=== PATIENT | male | born 1950 | race Caucasian/White ===

== ENCOUNTER 2017-03-09 09:04 | Emergency (ER) | payer OTHER ==
[~2017-03-09] VITALS: Ht 182.9 cm; Wt 81.4 kg
[~2017-03-09 09:04] MED LIST: ANALGESIC325 M1 PO; ASPIRIN325 MG PO; CARDIZEM SR60 MG PO; CARDIZEM60 MG PO; CLOPIDOGREL75 MG PO; COUMADIN,JANTOVE5 MG PO; DILTIAZEM ER60 MG PO; DOCUSATE SODIU1 EACH PO; ECOTRIN325 MG PO; LIPITOR20 MG PO; LOPRESSOR25 MG PO; METOPROLOL TART50 MG PO; ONDANSETRON HCL4 MG PO; PEPCID20 MG PO; POTASSIUM CHLO20 ME2 PO; POTASSIUM-9999 MG PO; POTASSIUM99 MG PO; PRAVASTATIN SOD80 MG PO; PROMETHAZINE12.5 M1 PO; SERTRALINE HCL100 MG PO; SERTRALINE HCL50 MG PO; SIMVASTATIN40 M1 PO; TAMSULOSIN HCL0.4 MG PO; THERA-TABS1 EACH PO; TOPROL XL50 MG PO; TRAMADOL HCL50 MG PO; TYLENOL REGULA325 MG PO; XARELTO20 MG PO; ZESTORETIC 10-1 EACH PO; ZESTORETIC,P1 TABLE1 PO; ZOLPIDEM TARTRAT5 MG PO
[2017-03-09 09:50] LABS: EOSINOPHIL (%) 0.5 % (0-5); HEMATOCRIT 44.7 % (38.0-50.0); IMMATURE GRANULOCYTE (%) 0.2 % (0.0-0.7); INSTRUMENT ABS NEUTROPHIL CT 4.2 K/uL; LYMPHOCYTE COUNT 0.8 K/uL (1.0-2.8); MCH 29.8 PG (29.0-34.0); MCHC 33.8 G/DL (30.0-36.0); MCV 88.3 FL (86-99); MEAN PLAT.VOLUME 10.7 uM^3 (9.0-12.4); MONOCYTE (%) 8.1 % (3-12); MONOCYTE COUNT 0.4 K/uL (0-0.8); NEUTROPHIL (%) 76.5 % (45-76); NEUTROPHIL COUNT 4.2 K/uL (1.8-6.4); PLATELET COUNT 129 K/uL (156-360); RBC DIS.WIDTH-CV 12.4 % (11.8-14.6); RBC DIS.WIDTH-SD 39.7 % (39-53); RED BLOOD COUNT 5.06 M/uL (4.00-5.50); WHITE BLOOD COUNT 5.5 K/uL (4.1-10.2)
[2017-03-09 09:58] LABS: CHLORIDE 106 mEq/L (99-109); MAGNESIUM 1.7 mg/dL (1.3-2.7); POTASSIUM 3.7 mEq/L (3.7-5.4); SODIUM 142 mEq/L (136-147)
[2017-03-09 10:00] LABS: GLUCOSE 101 mg/dL (70-99)
[2017-03-09 10:01] LABS: ANION GAP 9 MEQ/L (2-14)
[2017-03-09 10:02] LABS: TOTAL BILIRUBIN 2.3 mg/dL (0.0-1.0)
[2017-03-09 10:03] LABS: ALKALINE PHOSPHATASE 89 IU/L (3-129)
[2017-03-09 10:04] LABS: GFR ESTIMATE (CALCULATED) > 59 mL/min/
[2017-03-09 10:05] LABS: UREA NITROGEN (BUN) 10 mg/dL (9-23)
[2017-03-09 10:09] LABS: TROP-I INTERPRETATION NEGATIVE; TROPONIN-I < 0.01 ng/mL (0.0-0.30)
[2017-03-09 12:26] VITALS: BP 148/98
== END 2017-03-09 12:27 | disposition home or self-care (01) ==
LOC: EME 09:04
PROVIDERS: Emergency Medicine
DX: I48.2 Chronic atrial fibrillation (principal); I10 Essential (primary) hypertension; F32.9 Major depressive disorder, single episode, unspecified; Z86.73 Personal history of transient ischemic attack (TIA), and cerebral infarction without residual deficits; Z85.9 Personal history of malignant neoplasm, unspecified
CPT/HCPCS: 80053; 83735; 84484; 85025; 93005; 99281; 99285; J7040

== ENCOUNTER 2017-11-16 15:50 | Observation (INO) | payer OTHER ==
[~2017-11-16] VITALS: Ht 182.9 cm; Wt 76.1 kg
[~2017-11-16 15:50] MED LIST changes: +ADULT ASPIRIN R81 MG PO; +CARDIZEM30 MG PO; -ECOTRIN325 MG PO; +LIPITOR40 MG PO; +METOPROLOL TART25 MG PO
[2017-11-16 16:41] LABS: HEMATOCRIT 43.4 % (38.0-50.0); MCH 30.8 PG (29.0-34.0); MCHC 34.6 G/DL (30.0-36.0); MCV 89.1 FL (86-99); PLATELET COUNT 128 K/uL (156-360); RBC DIS.WIDTH-CV 12.2 % (11.8-14.6); RBC DIS.WIDTH-SD 39.5 % (39-53); RED BLOOD COUNT 4.87 M/uL (4.00-5.50); WHITE BLOOD COUNT 7.9 K/uL (4.1-10.2)
[2017-11-16 16:49] LABS: INTER. NORMALIZED RATIO 1.8
[2017-11-16 16:52] LABS: PTT 33.3 SEC (25-37)
[2017-11-16 16:55] LABS: CHLORIDE 107 mEq/L (99-109); POTASSIUM 3.9 mEq/L (3.7-5.4); SODIUM 144 mEq/L (136-147)
[2017-11-16 16:57] LABS: GLUCOSE 152 mg/dL (70-99); TOTAL PROTEIN 6.8 g/dL (6.4-8.3)
[2017-11-16 16:59] LABS: TOTAL BILIRUBIN 1.9 mg/dL (0.0-1.0)
[2017-11-16 17:00] LABS: ALKALINE PHOSPHATASE 102 IU/L (3-129)
[2017-11-16 17:01] LABS: CREATININE 1.6 mg/dL (0.6-1.3); GFR ESTIMATE (CALCULATED) 46 mL/min/ (58.99-99999)
[2017-11-16 17:02] LABS: AST (GOT) 29 IU/L (2-34); UREA NITROGEN (BUN) 25 mg/dL (9-23)
[2017-11-16 17:03] LABS: ALT (GPT) 22 IU/L (3-49)
[2017-11-16 17:04] LABS: TROP-I INTERPRETATION NEGATIVE; TROPONIN-I < 0.01 ng/mL (0.0-0.30)
[2017-11-16] MEDS ORDERED: XARELTO20 MG PO (18:41)
[2017-11-16 19:58] LABS: URIC ACID 6.5 mg/dL (3.1-9.2)
[2017-11-16 19:59] LABS: CREATINE KINASE 156 IU/L (1-294)
[2017-11-16 20:30] VITALS: BP 127/87
[2017-11-16 22:04] LABS: APPEARANCE CLEAR ((CLEAR)); BILIRUBIN NEGATIVE; BLOOD SMALL; COLOR YELLOW ((YELLOW)); GLUCOSE (STRIP) NEGATIVE; KETONES NEGATIVE; LEUKOCYTES NEGATIVE; NITRITE NEGATIVE; PROTEIN (STRIP) NEGATIVE; SPECIFIC GRAVITY 1.019 (1.000-1.030); UROBILINOGEN 0.2 MG/DL (0.2-1.0)
[2017-11-16 22:07] LABS: BACTERIA NONE SEEN /HPF; EPITHELIAL CELLS NONE SEEN /HPF; HYALINE CASTS 0-5 /LPF; MUCUS 1+ /LPF; RED BLOOD CELLS 0-5 /HPF (0-5); WHITE BLOOD CELLS 0-5 /HPF (0-5)
[2017-11-17] VITALS: BP 121/83
[2017-11-17 04:15] VITALS: BP 137/84
[2017-11-17 05:29] LABS: BASOPHIL (%) 0.4 % (0-1); EOSINOPHIL (%) 2.2 % (0-5); EOSINOPHIL COUNT 0.2 K/uL (0-0.3); HEMOGLOBIN 14.2 G/DL (12.5-16.6); IMMATURE GRANULOCYTE (%) 0.1 % (0.0-0.7); LYMPHOCYTE (%) 21.6 % (15-42); LYMPHOCYTE COUNT 1.5 K/uL (1.0-2.8); MCH 30.1 PG (29.0-34.0); MCHC 33.8 G/DL (30.0-36.0); MONOCYTE (%) 9.8 % (3-12); MONOCYTE COUNT 0.7 K/uL (0-0.8); NEUTROPHIL (%) 65.9 % (45-76); NEUTROPHIL COUNT 4.5 K/uL (1.8-6.4); PLATELET COUNT 118 K/uL (156-360); RBC DIS.WIDTH-CV 12.3 % (11.8-14.6); RBC DIS.WIDTH-SD 40.4 % (39-53); RED BLOOD COUNT 4.72 M/uL (4.00-5.50); WHITE BLOOD COUNT 6.8 K/uL (4.1-10.2)
[2017-11-17 05:46] LABS: TROP-I INTERPRETATION NEGATIVE; TROPONIN-I 0.01 ng/mL (0.0-0.30)
[2017-11-17 05:48] LABS: CHLORIDE 108 MEQ/L (99-109); POTASSIUM 3.8 MEQ/L (3.7-5.4); SODIUM 142 MEQ/L (136-147); UREA NITROGEN (BUN) 18 mg/dL (9-23)
[2017-11-17 05:54] LABS: GFR ESTIMATE (CALCULATED) > 59 mL/min/ (58.99-99999); GLUCOSE 96 mg/dL (70-99)
[2017-11-17 07:34] VITALS: BP 132/81
[2017-11-17 08:36] LABS: ALBUMIN 3.3 G/DL (3.2-4.8); ALKALINE PHOSPHATASE 77 IU/L (3-129); ALT (GPT) 15 IU/L (3-49); AST (GOT) 23 IU/L (2-34); DIRECT BILIRUBIN 0.3 mg/dL (0.0-0.3); TOTAL BILIRUBIN 1.8 MG/DL (0.0-1.0); TOTAL PROTEIN 5.7 G/DL (6.4-8.3)
[2017-11-17 11:12] VITALS: BP 142/75
== END 2017-11-17 13:12 | disposition home or self-care (01) ==
LOC: EME 15:50 → EDOF 19:14 → 4SOUTH 19:14 → ENRESERV 19:31 → 4SOUTH 20:23
PROVIDERS: Hospitalist; Physician Assistant
DX: N17.9 Acute kidney failure, unspecified (principal); E86.0 Dehydration; R55 Syncope and collapse; I48.0 Paroxysmal atrial fibrillation; I11.9 Hypertensive heart disease without heart failure; Z86.73 Personal history of transient ischemic attack (TIA), and cerebral infarction without residual deficits; I45.2 Bifascicular block; E78.5 Hyperlipidemia, unspecified; Z79.01 Long term (current) use of anticoagulants; Z98.890 Other specified postprocedural states; Z82.49 Family history of ischemic heart disease and other diseases of the circulatory system; Z82.3 Family history of stroke; Z80.51 Family history of malignant neoplasm of kidney; E80.6 Other disorders of bilirubin metabolism; D69.6 Thrombocytopenia, unspecified
CPT/HCPCS: 80048; 80053; 80076; 81003; 82436; 82550; 82550 91; 84133; 84300; 84484; 84550; 85025; 85027; 85610; 85730; 93005; 99281; 99284; G0378; J7030

== ENCOUNTER 2017-11-28 08:25 | Day surgery (SDC) | payer OTHER ==
[2017-11-28 18:05] VITALS: BP 136/89
[2017-11-28 19:12] VITALS: BP 130/75
[2017-11-28 19:35] VITALS: BP 80/58
[2017-11-28 20:00] LABS: BASOPHIL (%) 0.1 % (0-1); EOSINOPHIL (%) 0.4 % (0-5); HEMATOCRIT 40.6 % (38.0-50.0); HEMOGLOBIN 14.1 G/DL (12.5-16.6); IMMATURE GRANULOCYTE (%) 0.3 % (0.0-0.7); LYMPHOCYTE (%) 17.8 % (15-42); LYMPHOCYTE COUNT 1.2 K/uL (1.0-2.8); MCH 30.8 PG (29.0-34.0); MCHC 34.7 G/DL (30.0-36.0); MCV 88.6 FL (86-99); MONOCYTE (%) 6.2 % (3-12); MONOCYTE COUNT 0.4 K/uL (0-0.8); NEUTROPHIL (%) 75.2 % (45-76); NEUTROPHIL COUNT 5.2 K/uL (1.8-6.4); PLATELET COUNT 116 K/uL (156-360); RBC DIS.WIDTH-CV 12.3 % (11.8-14.6); RBC DIS.WIDTH-SD 39.4 % (39-53); RED BLOOD COUNT 4.58 M/uL (4.00-5.50)
[2017-11-28 23:31] VITALS: BP 121/72
[2017-11-29 04:55] VITALS: BP 118/65
[2017-11-29 05:48] LABS: BASOPHIL (%) 0.3 % (0-1); EOSINOPHIL (%) 1.9 % (0-5); EOSINOPHIL COUNT 0.1 K/uL (0-0.3); HEMATOCRIT 40.7 % (38.0-50.0); IMMATURE GRANULOCYTE (%) 0.3 % (0.0-0.7); LYMPHOCYTE (%) 20.5 % (15-42); LYMPHOCYTE COUNT 1.4 K/uL (1.0-2.8); MCH 30.6 PG (29.0-34.0); MCHC 34.4 G/DL (30.0-36.0); MCV 89.1 FL (86-99); MONOCYTE (%) 8.8 % (3-12); MONOCYTE COUNT 0.6 K/uL (0-0.8); NEUTROPHIL (%) 68.2 % (45-76); NEUTROPHIL COUNT 4.6 K/uL (1.8-6.4); PLATELET COUNT 109 K/uL (156-360); RBC DIS.WIDTH-CV 12.4 % (11.8-14.6); RBC DIS.WIDTH-SD 40.3 % (39-53); RED BLOOD COUNT 4.57 M/uL (4.00-5.50); WHITE BLOOD COUNT 6.7 K/uL (4.1-10.2)
[2017-11-29 06:02] LABS: CHLORIDE 106 MEQ/L (99-109); CREATININE 0.8 MG/DL (0.6-1.3); GFR ESTIMATE (CALCULATED) > 59 mL/min/ (58.99-99999); GLUCOSE 90 mg/dL (70-99); HDL CHOLESTEROL 33 MG/DL (Desirable>=40); LDL CHOLESTEROL 53 mg/dL (Desirable<100); NON-HDL CHOLESTEROL 63 mg/dL (Desirable<160); POTASSIUM 3.8 MEQ/L (3.7-5.4); SODIUM 140 MEQ/L (136-147); TOTAL CHOLESTEROL 96 mg/dL (Desirable<200); TRIGLYCERIDES 50 MG/DL (Normal: <150); UREA NITROGEN (BUN) 11 mg/dL (9-23)
[2017-11-29 07:23] VITALS: BP 165/94
[2017-11-29 11:54] VITALS: BP 151/83
[2017-11-29] MEDS ORDERED: ASPIRIN EC325 MG PO (13:12)
[2017-11-29] MEDS ORDERED: CLOPIDOGREL75 MG PO (13:12)
== END 2017-11-29 14:00 | disposition home or self-care (01) ==
LOC: CATH 08:25 → 2SOUTH 11:42 → ENRESERV 13:00 → 4EAST 17:53
PROVIDERS: Internal Medicine Cardiovascular Disease
PROC: B2151ZZ Fluoroscopy of Left Heart using Low Osmolar Contrast (ICD-10-PCS; principal; 2017-11-28)
PROC: B2111ZZ Fluoroscopy of Multiple Coronary Arteries using Low Osmolar Contrast (ICD-10-PCS; principal; 2017-11-28)
PROC: 4A023N7 Measurement of Cardiac Sampling and Pressure, Left Heart, Percutaneous Approach (ICD-10-PCS; principal; 2017-11-28)
DX: I25.10 Atherosclerotic heart disease of native coronary artery without angina pectoris (principal); I48.0 Paroxysmal atrial fibrillation; I10 Essential (primary) hypertension; E78.5 Hyperlipidemia, unspecified; I44.4 Left anterior fascicular block; I73.9 Peripheral vascular disease, unspecified; Z79.01 Long term (current) use of anticoagulants; Z86.73 Personal history of transient ischemic attack (TIA), and cerebral infarction without residual deficits
CPT/HCPCS: 80048; 80061; 85025; 85347; 93005; C1725; C1769; C1874; C1887; G0378; J1644; J2250; J3010; J3246; J7030